=== PATIENT | female | born 1995 | race Caucasian/White ===

== ENCOUNTER 2018-06-05 10:37 | Outpatient (CLI) | payer BC, OTHER ==
--- NOTE | 2018-06-05 13:44 | ULT ---
OBSTETRICAL SONOGRAM: HISTORY: evaluation. Second trimester gestation. FINDINGS: Multiple transabdominal sonographic views of the gravid uterus show a single intrauterine gestation i n a cephalic presentation. The cervix is closed and 3.2 cm. Amniotic fluid is within normal limits. Grade 0 placenta is anterior. spine and kidneys are intact, as visualized. No gross intracr anial abnormalities. Three-vessel cord shows a normal insertion. Four-chamber heart shows motion at 142 beats per minute. Measurements are as follows: BIPARIETAL DIAMETER: 19 weeks 3 days HEAD CIRCUMFERENCE: 18 weeks 6 days ABDOMINAL CIRCUMFERENCE: 18 weeks 1 day FEMUR LENGTH: 18 weeks 2 days ESTIMATED DATE OF DELIVERY BASED ON TODAY'S SONOGRAM: 11/01/2018 HADLOCK PERCENTILE: 2% IMPRESSION: 1. Single viable intrauterine gestation. 2. Estimated gestational age based on today's sonogram is 18 weeks 5 days. Please note that this is significantly smaller than the previously estabalished age of 20 weeks 2 days. POS: [facility]
== END 2018-06-05 10:38 | disposition home or self-care (01) ==
LOC: BICULT 10:37
PROVIDERS: ATTEND Family Medicine
DX: Z34.82 Encounter for supervision of other normal pregnancy, second trimester (principal); Z3A.18 18 weeks gestation of pregnancy
CPT/HCPCS: 76805

== ENCOUNTER 2018-08-19 13:49 | Outpatient (CLI) | payer BC, OTHER ==
--- NOTE | 2018-08-19 17:32 | ULT ---
OB ULTRASOUND AND UMBILICAL ARTERY ULTRASOUND: Date: 08/19/18 COMPARISON: None. HISTORY: Preeclampsia. TECHNIQUE: Multiplanar De La Cruz scale and color Doppler images were obtained in a transabdominal ultrasound. S pectral analysis of the Doppler waveforms of the umbilical artery were performed. FINDINGS: There is a single, live intrauterine , with heart rate of 149 beats/minute. A survey w as performed, which was unremarkable. Head, intracranial structures, heart, stomach, kidneys, umbilic al cord, umbilical cord insertion, spine, face, and extremities were evaluated and were normal. Average age of fetus based off today's examination is 29 weeks/1 day. The following measurements were taken and dates based off these measurements are as follows: BPD: 7.46 cm, 29 weeks/6 days HC: 26.82 cm, 29 weeks/2 days AC: 24.74 cm, 29 weeks/0 days FL: 5.51 cm, 29 weeks/0 days YANN is 14.7 cm, which is normal. Cervix is normal in length. Placenta is anterior in location, without focal abnormality. Evaluation of the umbilical arteries shows continuous diastolic flow within the umbilical arteries. P eak systolic velocity in the umbilical artery is 103 cm/second. End-diastolic velocity in this locati on is 30.8 cm/second. The systolic/diastolic ratio is in this location is 3.37. IMPRESSION: 1. Single, live intrauterine , with estimated age of 29 weeks and 1 day. 2. Unremarkable umbilical artery ultrasound. POS: [facility]
== END 2018-08-19 13:50 | disposition home or self-care (01) ==
LOC: ULT 13:49
PROVIDERS: ATTEND Family Medicine
DX: O14.93 Unspecified pre-eclampsia, third trimester (principal); Z3A.29 29 weeks gestation of pregnancy
CPT/HCPCS: 76700; 76805

== ENCOUNTER 2018-08-26 09:47 | Inpatient (IN) | payer BC, OTHER ==
[2018-08-26 10:36] VITALS: BMI 30.7
[2018-08-26] MEDS ORDERED: Ondansetron PF 4 MG/2 ML Vial IVP PRN (10:46)
[2018-08-26] MEDS ORDERED: Promethazine HCl 25 MG/ML VIAL IM PRN (10:46)
--- NOTE | 2018-08-26 11:38 | HP ---
REASON FOR ADMISSION: A 30 weeks' gestation with elevated blood pressures at home and visual changes. HISTORY OF PRESENT ILLNESS: Ms. Rodríguez is a 23-year-old, 3, para 2, AB 0, at 30 weeks' gestation with an SHARON of 11/04/2018. She has a known history of severe preeclampsia with previous pregnancies leading to delivery at 30 and 35 weeks' gestation. She has been followed by Dr. Sandra Phan since 5 weeks of gestation. The patient's blood pressures have increased since early August. The patient received corticosteroids on 08/05/2018 and 08/06/2018. Serial blood pressures in the office reveal occasional 150s/90s, but also with 120s/70s. The patient called today and reported that she had some changes in her vision and blood pressures of 140 to 150 over 80 to 100 at home. Decision was made to bring the patient to the hospital for serial blood pressures, followup umbilical artery Dopplers, and repeat 24-hour urine. 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 Blood type A positive. Antibody negative. Pap negative. Rubella immune. VDRL nonreactive. Hepatitis B, GC, and chlamydia negative. Of note, the patient has been on baby aspirin daily since 1st trimester. 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 MEDICAL HISTORY: Denies. ALLERGIES: DENIES. MEDICATIONS: vitamins and baby aspirin. SOCIAL HISTORY: Denies tobacco, alcohol, or drug abuse. FAMILY HISTORY: Noncontributory. REVIEW OF SYSTEMS: Noncontributory. PHYSICAL EXAMINATION: GENERAL: White female, resting comfortably. VITAL SIGNS: Blood pressure 130/80, pulse 85, and respirations 18. HEENT: Within normal limits. LUNGS: Clear to auscultation bilaterally. HEART: Regular rhythm. ABDOMEN: Soft and nontender with fundal height of 29 cm. FHTs 130s to 140s. PELVIC: External genitalia are unremarkable. Vaginal exam deferred. EXTREMITIES: No clubbing, cyanosis, or edema. monitoring was carried out, which revealed a baseline of 140s. Positive accelerations. No decelerations. No contractions noted. IMPRESSION: Gestational hypertension with a history of preeclampsia. A 24-hour urine testing last week revealed mild elevation of total protein over 24 hours. The patient has benign neurologic exam without scotoma and no right upper quadrant pain. PLAN: Serial blood pressures, 24-hour urine for protein, repeat ultrasound to evaluate growth, amniotic fluid, umbilical artery Doppler. If delivery becomes indicated, we would consider if she is stable enough to allow for delay rescue course of corticosteroids. We would not start magnesium sulfate at this time; however, if delivery becomes indicated, we would initiate likely for both preeclampsia as well as neuroprotective effects. Job ID: [id number]
[2018-08-26 11:58] LABS: Hemoglobin 11.7 g/dL (12.0-16.0); Mean Corpuscular HGB CONC 33.4 g/dL (32.0-36.0); Mean Corpuscular Hemoglobin 32.1 pg (27.0-31.0); Mean Corpuscular Volume 95.9 fL (78.0-98.0); Mean Platelet Volume 8.1 fL (7.4-10.4); Platelet Count 163 thou/uL (130-400); RBC Distribution Width 12.3 % (11.5-14.5); Red Blood Cell (RBC) Count 3.65 mill/uL (4.20-5.40); White Blood Cell (WBC) Count 8.8 thou/uL (4.8-10.8)
[2018-08-26 12:20] LABS: ALT (SGPT) 14 U/L (8-55); AST (SGOT) 15 U/L (5-34); Albumin 3.3 g/dL (3.5-5.0); Alkaline Phosphatase 101 U/L (40-150); Anion Gap 10 mmol/L (10-20); BUN (Urea Nitrogen) 11 mg/dL (7.0-18.7); Bilirubin, Total 0.3 mg/dL (0.2-1.2); Calc. Creatinine Clearance 169 mL/min (70-130); Calcium 8.7 mg/dL (7.8-10.44); Carbon Dioxide 23 mmol/L (22-29); Chloride 107 mmol/L (98-107); Estimated GFR-MDRD Greater than 90; Globulin 2.9 g/dL (2.4-3.5); Glucose 76 mg/dL (70-105); Potassium 4.1 mmol/L (3.5-5.1); Protein, Total 6.2 g/dL (6.0-8.3); Sodium 136 mmol/L (136-145)
[2018-08-26 12:38] LABS: Syphilis Antibody Nonreactive (Nonreactive); Syphilis Antibody Index 0.04 S/CO (<1.00 Non-Reactive)
[2018-08-26 12:39] LABS: HBSAg Index 0.18 S/CO (0-0.99); HIV (1/2) Antibody/Antigen Non-Reactive (NonReactive); HIV 1/2 INDEX 0.06 S/CO (<1.00); Hep B Surf Ag Non-Reactive S/CO (NonReactive)
--- NOTE | 2018-08-26 14:27 | ULT ---
ULTRASOUND OB ABDOMEN COMPLETE ULTRASOUND ABDOMEN AND PELVIS DUPLEX ARTERIAL VENOUS FLOW: COMPARISON: OB ultrasound 08/19/2018. HISTORY: Preeclampsia. FINDINGS: Real-time, funes scale, color Doppler, and spectral analysis of the gravid uterus and umbilical artery was performed. Single viable intrauterine with average ultrasound age of 31 weeks 3 days with estimated da te of delivery 10/25/2018. Estimated weight is 3 pounds 10 ounces, 65th percentile. BIOMETRY: Biparietal diameter 8.06 cm, 32 weeks 3 days Head circumference 29.4 cm, 32 weeks 3 days Abdominal circumference 26.17 cm, 30 weeks 2 days Femur length 5.86 cm, 30 weeks 4 days Amniotic fluid index is 12.4 cm. heart rate documented at 155 b.p.m. The position is ve rtex and the placenta is anterior. Amniotic fluid is adequate. Limited evaluation of the bladder, k idneys, 4-chamber heart, stomach, and cord insertion are all normal. UMBILICAL ARTERY: DOPPLERS: Placental insertion peak systolic velocity is 33.2 cm. End-diastolic velocity 10 cm/s. Systolic to diastolic ratio 3.32. MID CORD: Peak systolic velocity 30.1 cm/s and diastolic velocity of 7.8 cm/s. Systolic to diastolic ratio of 3.86 cm. INSERTION: Peak systolic velocity of 57.6 cm/s. Diastolic velocity 14.9 cm/s. Systolic to diastolic ratio is 3 .87. No flow reversal. There is flow throughout diastole. IMPRESSION: Single viable intrauterine with adequate diastolic flow in the umbilical artery. POS: [facility]
[2018-08-26] MEDS ORDERED: Calcium Carbonate 500 MG ChewTAB PO PRN (15:40)
[2018-08-26] MEDS: Acetaminophen 325 MG TAB PO PRN ×2 (16:55→21:58)
[2018-08-27] MEDS: Acetaminophen 325 MG TAB PO PRN ×2 (01:56→07:30)
[2018-08-27 08:23] VITALS: BP 138/92; TEMP 98
[2018-08-27] MEDS ORDERED: Aspirin 81 mg Enteric Coated Tablet PO SCH (09:00)
--- NOTE | 2018-08-27 09:45 | DIS ---
DATE OF ADMISSION: 08/26/2018 DATE OF DISCHARGE: 08/27/2018 DISCHARGE DIAGNOSES: 1. A 30-week 1 day intrauterine . 2. Gestational hypertension. 3. History of severe -induced hypertension x2. 4. Previous section x2. 5. Headache with vision change. HOSPITAL COURSE: Ms. Patel is a 30-week gestation G3, P0-2-0-2 at 30 weeks gestation who was evaluated in my office on the day of admission. She has been followed twice weekly due to elevated blood pressures as well as a recent note of elevated umbilical artery Doppler pressures with previous severe PIH. The patient on evaluation noted her blood pressures had increased to the 150s/100s at home on rest and had complaints of a mild headache as well as some vision change. She was sent to labor and delivery for initial monitoring. Blood pressures did decrease to 130/80, continued with the mild headache. Exam otherwise normal. Initial evaluation with laboratory studies, which revealed white count of 8.8, hemoglobin 11.7, platelets normal at 163. Comprehensive metabolic panel within normal limits with normal liver function tests. AST 15, ALT 14, alk phos 101 and creatinine 0.61. A 24-hour urine was initiated for total protein and a ultrasound was obtained, which revealed baby to be growing well at the 65th percentile with weight of 3 pounds of 10 ounces at 31 weeks and 3 days as well as normal YANN of 12.4. Umbilical artery Dopplers revealed placental insertion S-D ratio 3.32, mid cord 3.86 and insertion 3.87. Following morning blood pressures remained in the normal range 125-142 systolic/68-82 diastolic. Exam was normal. The patient continued to the have very mild headache in spite of normal blood pressures. Plan to discharge home after completion of the 24-hour urine. We will continue biweekly testing as discussed with the labor Dr. Jose Cortez. She is to followup with me in 2 days in the office for evaluation and NST as well as the following week for evaluation and OB ultrasound with biophysical profile. Job ID: [id number]
[2018-08-27 10:40] LABS: Urine Total Volume 1925 mL (600-1600)
[2018-08-27 11:00] LABS: Protein - 24 Hr 443 mg/24 hr (Less than 300); Protein, Urine 23 mg/dL (1-14)
== END 2018-08-27 11:55 | disposition home or self-care (01) | DRG 833 ==
LOC: L&D 09:47 → 3SW 17:03
PROVIDERS: ADMIT Family Medicine; ATTEND Family Medicine
DX: O13.3 Gestational [pregnancy-induced] hypertension without significant proteinuria, third trimester (principal); Z3A.30 30 weeks gestation of pregnancy; Z98.890 Other specified postprocedural states
CPT/HCPCS: 36415; 59025; 76700; 76805; 80053; 84156; 85027; 86780; 86850; 86900; 86901; 87340; 87389

== ENCOUNTER 2018-09-02 09:36 | Outpatient (CLI) | payer BC, OTHER ==
--- NOTE | 2018-09-02 12:01 | ULT ---
OB ULTRASOUND: 09/02/2018 HISTORY: Follow-up evaluation. Hypertension. COMPARISON: 08/26/2018 FINDINGS: Again, there is a single intrauterine gestation, in a cephalic presentation. Cardiac Doppler demonst rates heart tones with a heart rate of 153 beats per minute. The placenta is located ant eriorly, without evidence of placenta previa. There is a normal amount of air-fluid level, with an a mniotic fluid volume of 12.49 cm. The cervix is mostly obscured due to shadowing from the head, which limits adequate evaluation for accurate measurement of cervical length. MEASUREMENTS: BIPARIETAL DIAMETER: 8.34 cm (33 weeks 4 days). HEAD CIRCUMFERENCE: 29.22 cm (32 weeks 2 days). ABDOMINAL CIRCUMFERENCE: 27.49 cm (31 weeks 4 days). FEMUR LENGTH: 5.48 cm (29 weeks). The estimated gestational age by ultrasound is 31 weeks 5 days, with an SHARON of 10/30/2018. Gestation al age by last menstrual period is 31 weeks. The estimated weight by ultrasound is 1675 g (3 lbs 11 oz). This represents the 37th percentil e for weight. A biophysical profile was performed and, reportedly, a score of 2 was obtained, each, for breat harris, tone, movement, and amniotic fluid volume. UMBILICAL ARTERY DOPPLER EVALUATION: PLACENTAL INSERTION: The peak systolic velocity is 54.5 cm per second. The end-diastolic velocity i s 21.4 cm per second. The systolic to diastolic ratio is 2.5, and the resistive index is 0.61. MID UMBILICAL CORD: The peak systolic velocity is 81.8 cm per second. The end-diastolic velocity is 20.5 cm per second. The systolic to diastolic ratio is 4, and the resistive index is 0.75. UMBILICAL CORD AT THE INSERTION: The peak systolic velocity is 97.4 cm per second. The end-di astolic velocity is 20.5 cm per second. The resistive index is 0.79, with a systolic to diastolic r atio of 4.8. This examination was not performed for evaluation of the anatomic structures, but no definite f etal anomalies are seen. IMPRESSION: 1. Single intrauterine gestation, in cephalic presentation, with heart tones documented. 2. Estimated weight by ultrasound is 1675 g (3 pounds 11 oz), which represents the 37th percen tile for weight. 3. A total biophysical profile score of 8/8 is obtained. 4. Umbilical artery Doppler evaluation is as described above. POS: [facility]
--- NOTE | 2018-09-02 12:05 | ULT ---
BIOPHYSICAL PROFILE SCORE: 09/02/2018 FINDINGS: Biophysical profile score is reported on OB ultrasound. POS: [facility]
== END 2018-09-02 09:37 | disposition home or self-care (01) ==
LOC: BICULT 09:36
PROVIDERS: ATTEND Family Medicine
DX: O13.3 Gestational [pregnancy-induced] hypertension without significant proteinuria, third trimester (principal)
CPT/HCPCS: 36415; 76700; 76816; 76819; 80053; 84156; 85025

== ENCOUNTER 2018-09-09 07:49 | Outpatient (CLI) | payer BC, OTHER ==
--- NOTE | 2018-09-09 09:49 | ULT ---
BIOPHYSICAL PROFILE: HISTORY: Gestational hypertension followup. FINDINGS: biophysical profile score equals 8/8. IMPRESSION: Normal biophysical profile score of 8/8. POS: [facility]
--- NOTE | 2018-09-09 10:22 | ULT ---
COMPLETE OB ULTRASOUND INCLUDING VASCULAR AND DUPLEX EXAMINATION OF THE UMBILICAL CORD: FINDINGS: A single viable intrauterine fetus was noted in cephalic presentation. Cervical length of 3.3 cm. P lacenta is anterior and fundal. heart rate varies between 134 and 143 b.p.m. Amniotic fluid i s within normal limits, YANN 9.7 cm. Visualized brain, 4-chamber heart, stomach, kidneys, cord insert, bladder, lips and nose, and 3 -vessel cord were demonstrated. Biometry: BPD 8.3 cm-33 weeks 3 days Head circumference 29.3 cm-32 weeks 3 days Abdominal circumference 27.9 cm-32 weeks 0 days Femur length 6.2 cm-32 weeks 0 days UMBILICAL ARTERY VASCULAR DUPLEX WITH COLOR AND SPECTRAL DOPPLER IMAGING: Systolic/diastolic ratio of the umbilical artery at the level of the cord equals 4.2 cm with re sistive index of 0.76. At the mid core level systolic diastolic ratio equals 4.85 with a resistive i ndex of 0.79. At the level of the placenta cord insertion systolic diastolic ratio equals 2.53 with a resistive index of 0.607. IMPRESSION: Elevated systolic to diastolic ratios at the level of the cord insert and mid cord level, but n o evidence for flow reversal. Single viable intrauterine fetus at 32 weeks 4 days, estimated date of delivery of 10/31/2018. Estimated weight 1902 gm. POS: [facility]
== END 2018-09-09 07:50 | disposition home or self-care (01) ==
LOC: BICULT 07:49
PROVIDERS: ATTEND Family Medicine
DX: O13.3 Gestational [pregnancy-induced] hypertension without significant proteinuria, third trimester (principal); Z3A.32 32 weeks gestation of pregnancy
CPT/HCPCS: 36415; 76700; 76805; 76819; 80053; 84156; 85025

== ENCOUNTER 2018-09-10 14:31 | Inpatient (IN) | payer BC, OTHER ==
[2018-09-10] MEDS ORDERED: hydrALAZINE 20 MG/ML VIAL ONE (15:06)
[2018-09-10] MEDS ORDERED: Magnesium Sulfate 20 gm/500 ml 20 GM/500 ML BAG ONE (15:07)
[2018-09-10] MEDS ORDERED: Ondansetron PF 4 MG/2 ML Vial ONE (15:15)
[2018-09-10] MEDS ORDERED: Butorphanol Tartrate 1 MG/ML VIAL SLOW IVP PRN (15:16)
[2018-09-10] MEDS ORDERED: Ondansetron PF 4 MG/2 ML Vial IVP PRN (15:16)
[2018-09-10] MEDS ORDERED: Calcium Gluc 4.6 MEQ/10 ML (100 MG/ML) SLOW IVP PRN (15:16)
[2018-09-10] MEDS ORDERED: Betamet Acet/Betamet Na Ph 30 MG/5 ML VIAL ONE (15:18)
--- NOTE | 2018-09-10 15:23 | PDOC.LDHP ---
Labor and Delivery H&P Chief complaint: other HPI: 23 yo WF presents c/o HALE and malaise. Denies visual change or RUQ pain. Followed by Dr. Jazzy hPan with incresing PIH sxs. over last several days. Current gestational age (weeks): 32 Due date: 11/04/18 Dating criteria: last menstrual period Grav: 3 Para: 2 OB History Details: As above, h/o 3 prev. C/S. Current complications: other (as above, h/o increasing UP on recent 24 hr urine collections) Abnormal US findings: No Past Medical History: migraine HALE Current medications: pre-patrica vitamins, other (ASA 81) Previous surgical history: low tranverse CS (x2), other (bunion, T&A) Allergies/Adverse Reactions: Allergies Allergy/AdvReac Type Severity Reaction Status Date / Time No Known Allergies Allergy Verified 08/26/18 10:19 Social history: none - Physical Exam Abnormal vital signs: initial BP= 177/113 General: NAD Heart: RRR Lungs: nonlabored breathing Abdomen: gravid Extremeties: trace edema FHT: category 1 [place] contractions every: no UCs seen - OB Labs Blood type: A RH: positive Antibody Screen: negative HIV: negative RPR: negative HEPSAg: negative 1 hour GCT: negative Rubella: immune - Assessment L&D Assessment: (32 week IUP, PIH, 2 prev. C/S for PIH) - Plan Plan: admit to L&D, informed consent obtained, magnesium for seizure prophylaxis (labs ordered, Celestone given. Dr. Jazzy Phan notified.)
[2018-09-10] MEDS ORDERED: Betamet Acet/Betamet Na Ph 30 MG/5 ML VIAL IM SCH (15:30)
[2018-09-10] MEDS ORDERED: Labetalol HCl 100 MG/20 ML VIAL SLOW IVP SCH (15:30)
[2018-09-10] MEDS ORDERED: Magnesium Sulfate 20 GM/WATER 500 ML BAG IVPB SCH (15:30)
[2018-09-10 15:44] LABS: Hemoglobin 11.3 g/dL (12.0-16.0); Mean Corpuscular HGB CONC 30.7 g/dL (32.0-36.0); Mean Corpuscular Hemoglobin 29.1 pg (27.0-31.0); Mean Corpuscular Volume 94.9 fL (78.0-98.0); Mean Platelet Volume 8.5 fL (7.4-10.4); Platelet Count 191 thou/uL (130-400); RBC Distribution Width 12.3 % (11.5-14.5); Red Blood Cell (RBC) Count 3.87 mill/uL (4.20-5.40); White Blood Cell (WBC) Count 12.7 thou/uL (4.8-10.8)
[2018-09-10 15:49] LABS: Bilirubin Small (Negative); Blood, Urine Negative (Negative); Clarity CLEAR (Clear); Glucose, Urine (Dipstick) Negative (Negative); Leukocyte Negative (Negative); Nitrite Negative (Negative); Protein, Urine (Dipstick) 300 mg/dL (Neg-Trace); Specific Gravity, Urine 1.038 (1.002-1.036); Urobilinogen 0.2 mg/dL (0.2-1.0); pH, Urine 5.5 (5.0-9.0)
[2018-09-10 15:55] LABS: Bacteria/HPF None Seen HPF (None Seen); RBC/HPF 0-3 HPF (0-3); WBC/HPF 0-3 HPF (0-3)
[2018-09-10 15:56] LABS: Pathc Cast-AUWi Flag 6.39 (0-2.49)
[2018-09-10 16:09] LABS: Hyaline Casts/LPF 0-3 HYALINE CAST LPF (0-3 Hyaline); Manual Microscopic Reviewed? No Path Casts Seen; Renal Epithelial None Seen HPF (0-3); Transitional Epithelial NONE SEEN HPF (0-3)
[2018-09-10 16:14] LABS: HBSAg Index 0.28 S/CO (0-0.99); Hep B Surf Ag Non-Reactive S/CO (NonReactive)
[2018-09-10 16:22] LABS: Syphilis Antibody Nonreactive (Nonreactive); Syphilis Antibody Index 0.03 S/CO (<1.00 Non-Reactive)
[2018-09-10 16:28] VITALS: BMI 33.4
[2018-09-10 17:17] LABS: ALT (SGPT) 22 U/L (8-55); AST (SGOT) 22 U/L (5-34); Albumin 3.3 g/dL (3.5-5.0); Alkaline Phosphatase 117 U/L (40-150); Anion Gap 12 mmol/L (10-20); BUN (Urea Nitrogen) 14 mg/dL (7.0-18.7); Bilirubin, Total Less than 0.2 mg/dL (0.2-1.2); Calc. Creatinine Clearance 166 mL/min (70-130); Calcium 9.2 mg/dL (7.8-10.44); Carbon Dioxide 21 mmol/L (22-29); Chloride 107 mmol/L (98-107); Estimated GFR-MDRD Greater than 90; Globulin 2.8 g/dL (2.4-3.5); Glucose 96 mg/dL (70-105); Potassium 4.3 mmol/L (3.5-5.1); Protein, Total 6.1 g/dL (6.0-8.3); Sodium 136 mmol/L (136-145)
[2018-09-10] MEDS: Promethazine HCl 25 MG/ML VIAL IM PRN (21:24)
[2018-09-10] MEDS: Meperidine HCl/PF 25 MG/ML VIAL IM/IV PRN (21:24)
[2018-09-11] MEDS: Magnesium Sulfate 20 gm/500 ml 20 GM/500 ML BAG IVPB SCH ×3 (00:06→23:08)
[2018-09-11] MEDS: Lactated Ringer's 1,000 ML IV SCH (02:57)
[2018-09-11] MEDS: Promethazine HCl 25 MG/ML VIAL IM PRN (02:58)
[2018-09-11] MEDS: Meperidine HCl/PF 25 MG/ML VIAL IM/IV PRN (02:58)
[2018-09-11] MEDS ORDERED: Bicitra 30 ML UDCUP PO SCH (05:52)
[2018-09-11] MEDS ORDERED: CEFAZOLIN 2 GM in Premix Bag 1 BAG IVPB SCH (05:52)
[2018-09-11] MEDS ORDERED: MORPHINE 5 MG/10 ML PF VIAL ONE (06:19)
[2018-09-11] MEDS ORDERED: Ondansetron PF 4 MG/2 ML Vial ONE (06:20)
[2018-09-11] MEDS ORDERED: Dexamethasone 4 mg/ml Vial ONE (06:20)
[2018-09-11] MEDS ORDERED: PHENYLEPHRINE-NS 100 MCG/ML 10 ML SYRINGE ONE (06:20)
[2018-09-11] MEDS ORDERED: Oxytocin 10 UNITS/ML VIAL ONE ×2 (06:20→06:21)
[2018-09-11 06:22] LABS: Hemoglobin 12.5 g/dL (12.0-16.0); Mean Corpuscular HGB CONC 31.7 g/dL (32.0-36.0); Mean Corpuscular Hemoglobin 30.3 pg (27.0-31.0); Mean Corpuscular Volume 95.7 fL (78.0-98.0); Mean Platelet Volume 8.4 fL (7.4-10.4); Platelet Count 191 thou/uL (130-400); RBC Distribution Width 12.1 % (11.5-14.5); Red Blood Cell (RBC) Count 4.13 mill/uL (4.20-5.40); White Blood Cell (WBC) Count 16.6 thou/uL (4.8-10.8)
[2018-09-11] MEDS ORDERED: Azithromycin 500 MG in Sodium Chloride 0.9% 250 ML 250 ML IVPB SCH (06:30)
[2018-09-11] MEDS ORDERED: diphenhydrAMINE 25 MG CAP PO PRN ×2 (06:55→16:44)
[2018-09-11] MEDS ORDERED: Eucerin (Mineral Oil/Petrolatum,White) 30 gm Jar TOP PRN (06:55)
[2018-09-11] MEDS ORDERED: diphenhydrAMINE 50 MG/ML VIAL IM PRN (06:55)
[2018-09-11] MEDS ORDERED: Naloxone HCl 0.4 mg/ml Vial IV PRN ×2 (06:55)
[2018-09-11] MEDS ORDERED: diphenhydrAMINE 50 MG/ML VIAL IVP PRN ×2 (06:55)
[2018-09-11] MEDS ORDERED: Zolpidem Tartrate 5 MG TAB PO PRN ×2 (06:55→19:00)
[2018-09-11] MEDS ORDERED: fentaNYL Citrate/PF 2,000 MCG in Sodium Chloride 0.9% 60 ML IV PRN (06:55)
[2018-09-11] MEDS ORDERED: Naloxone HCl 0.4 mg/ml Vial IVP PRN ×2 (06:55)
[2018-09-11] MEDS ORDERED: Promethazine HCl 25 MG/ML VIAL IM PRN ×2 (06:55)
[2018-09-11] MEDS ORDERED: Ondansetron PF 4 MG/2 ML Vial IVP PRN ×3 (06:55→16:44)
[2018-09-11] MEDS ORDERED: Promethazine HCl 25 MG SUPP PR PRN (06:55)
[2018-09-11] MEDS ORDERED: Communication Order-Pharmacy FS SCH ×2 (07:00)
[2018-09-11 07:39] LABS: Actual Bicarbonate (HCO3a) 24.2 mEq/L (22-28); Actual Bicarbonate (HCO3v) 24 mEq/L (22-28)
[2018-09-11 07:40] LABS: pH (Cord, venous) 7.24 (7.32-7.43)
[2018-09-11 07:41] LABS: Base Excess -4.4 mEq/L (-2.0 to +3.0)
[2018-09-11] MEDS ORDERED: Ketorolac Tromethamine 30 MG/ML VIAL ONE ×2 (09:10→14:59)
[2018-09-11] MEDS ORDERED: NS / Oxytocin 40 units/1000ml 1,000 ML ONE (09:11)
--- NOTE | 2018-09-11 10:25 | OP ---
DATE OF PROCEDURE: 09/11/2018 PREOPERATIVE DIAGNOSES: A 32-week 2 day intrauterine with previous section x2 and preeclampsia with severe features. POSTOPERATIVE DIAGNOSES: A 32-week 2 day intrauterine with previous section x2 and preeclampsia with severe features, status post delivery. OPERATION PERFORMED: Repeat low-transverse section. DIRECTOR OF PLANT OPERATIONS: Aguila Hirsch M.D. ANESTHETIC: Spinal. COMPLICATIONS: None. The patient had been admitted the day prior with elevated blood pressures and proteinuria. She has been placed on magnesium sulfate IV, noted over the subsequent 12 hours, decreased urine output and increasing severity of headache. Decision was made to proceed with delivery. Risks, benefits and alternatives had been explained to the patient. The patient was taken to the operating room. After spinal anesthesia, the patient was placed in supine position, a wedge was placed under her right flank. Abdomen was prepped and draped in the usual sterile technique. A Echevarria catheter had previously been placed. A Pfannenstiel incision was made in the infra aspect of the abdomen. The old scar was removed without difficulty. Subcutaneous tissue opened with sharp dissection. Fascia opened with sharp dissection. Peritoneum opened with sharp and blunt dissection. Noted that the abdomen was still with a gravid uterus. A bladder blade was placed and the bladder flap was incised inferiorly. A low-transverse incision was made on the uterus. Membranes were ruptured. Clear fluid was encountered and a viable female infant was delivered from vertex presentation without difficulty. breathed and cried spontaneously. The cord was clamped and cut and the was handed to the care of the neonatology team. A section of the cord was excised for cord gases and additional cord blood was obtained. The placenta was delivered manually, appeared intact. A wet lap was placed over the uterus, taken external to the abdominal cavity and a second lap was used to clean the uterus. Hysterotomy edges were grasped with ring forceps and the hysterotomy was then closed in continuous fashion 0 Monocryl. Hemostasis was adequate. There was no bleeding from the bladder flap. Uterus was replaced into the abdominal cavity. Gutters were checked, few small clots were removed and the peritoneum was then closed in continuous fashion using 2-0 chromic sutures. The sponge and instrument counts were correct. Fascia was then closed using 0-Vicryl and 3 interrupting sutures of 2-0 chromic were placed for fascia. The skin was then closed using ivette. Sponge and instruments again were correct. The patient tolerated the procedure well, did go to the labor ICU to continue magnesium sulfate for preeclampsia. ESTIMATED BLOOD LOSS: 800 mL. Note that the baby is a viable female, weight 3 pounds 12 ounces, Apgars 5 at one minute and 9 at five minutes. Note there were mild adhesions with internal scarring. The patient without any other complications. Job ID: [id number]
[2018-09-11] MEDS ORDERED: Betamet Acet/Betamet Na Ph 30 MG/5 ML VIAL IM SCH (15:30)
[2018-09-11] MEDS ORDERED: Acetaminophen 325 MG TAB PO PRN (16:44)
[2018-09-11] MEDS ORDERED: Lanolin Ointment 7 GM TUBE TOP PRN (16:44)
[2018-09-11] MEDS ORDERED: Simethicone Chewable 80 MG TAB PO PRN (16:44)
[2018-09-11] MEDS ORDERED: Bisacodyl 10 MG SUPP PR PRN (16:44)
[2018-09-11] MEDS ORDERED: Prenatal Vitamin 1 TAB PO SCH (16:44)
[2018-09-11] MEDS ORDERED: Acetaminophen/Codeine 30-300mg Tablet PO PRN (19:00)
[2018-09-11] MEDS ORDERED: HYDROcodone/Acetaminophen 5/325 mg Tablet PO PRN (19:00)
[2018-09-11] MEDS: Docusate Calcium (SURFAK) 240 MG CAP PO SCH (20:59)
[2018-09-11] MEDS: Ketorolac Tromethamine 30 MG/ML VIAL IVP SCH (20:59)
[2018-09-12] MEDS ORDERED: diphenhydrAMINE 25 MG CAP PO PRN (08:59)
[2018-09-12] MEDS ORDERED: Ondansetron PF 4 MG/2 ML Vial IVP PRN (08:59)
[2018-09-12] MEDS ORDERED: Lanolin Ointment 7 GM TUBE TOP PRN (08:59)
[2018-09-12] MEDS ORDERED: Bisacodyl 10 MG SUPP PR PRN (08:59)
[2018-09-12] MEDS ORDERED: HYDROcodone/Acetaminophen 5/325 mg Tablet PO PRN ×2 (08:59→18:45)
[2018-09-12] MEDS ORDERED: Acetaminophen 325 MG TAB PO PRN (08:59)
[2018-09-12] MEDS ORDERED: Prenatal Vitamin 1 TAB PO SCH (09:00)
[2018-09-12] MEDS: Ferrous Sulfate 325 MG TAB PO SCH ×2 (11:02→22:03)
[2018-09-12] MEDS: Labetalol 100 MG TAB PO SCH ×2 (11:03→21:25)
[2018-09-12] MEDS: Prenatal Vitamin 1 TAB PO SCH (11:03)
[2018-09-12] MEDS: Acetaminophen/Codeine 30-300mg Tablet PO PRN ×2 (11:03→16:19)
[2018-09-12] MEDS: Docusate Calcium (SURFAK) 240 MG CAP PO SCH ×3 (11:03→21:26)
[2018-09-12] MEDS: Simethicone Chewable 80 MG TAB PO PRN ×2 (16:22→21:52)
[2018-09-12] MEDS: Ketorolac Tromethamine 30 MG/ML VIAL IVP SCH (19:50)
[2018-09-12] MEDS: Lactated Ringer's 1,000 ML IV SCH (19:52)
[2018-09-13] MEDS: Docusate Calcium (SURFAK) 240 MG CAP PO SCH ×2 (08:02→21:39)
[2018-09-13] MEDS: Prenatal Vitamin 1 TAB PO SCH (08:03)
[2018-09-13] MEDS: Acetaminophen/Codeine 30-300mg Tablet PO PRN ×4 (08:03→23:17)
[2018-09-13] MEDS: Labetalol 100 MG TAB PO SCH ×2 (08:03→21:39)
[2018-09-13] MEDS: Ferrous Sulfate 325 MG TAB PO SCH ×2 (08:12→16:30)
[2018-09-13] MEDS: Simethicone Chewable 80 MG TAB PO PRN ×2 (17:06→21:40)
[2018-09-14] MEDS: Acetaminophen/Codeine 30-300mg Tablet PO PRN (08:02)
[2018-09-14] MEDS: Labetalol 100 MG TAB PO SCH (09:23)
[2018-09-14] MEDS: Ferrous Sulfate 325 MG TAB PO SCH (09:24)
[2018-09-14] MEDS: Docusate Calcium (SURFAK) 240 MG CAP PO SCH (09:24)
[2018-09-14] MEDS: Simethicone Chewable 80 MG TAB PO PRN (09:24)
[2018-09-14] MEDS: Prenatal Vitamin 1 TAB PO SCH (09:24)
[2018-09-14 09:26] VITALS: BP 139/93
[2018-09-14 12:26] VITALS: TEMP 98.4
== END 2018-09-14 16:57 | disposition home or self-care (01) | DRG 788 ==
LOC: L&D/OP 14:31 → L&D 22:30 → 3SW 09-12 09:02
PROVIDERS: ADMIT Family Medicine; ATTEND Family Medicine
PROC: 10D00Z1 Extraction of Products of Conception, Low, Open Approach (ICD-10-PCS; principal; 2018-09-10)
DX: O14.14 Severe pre-eclampsia complicating childbirth (principal); O34.211 Maternal care for low transverse scar from previous cesarean delivery; Z3A.32 32 weeks gestation of pregnancy; Z37.0 Single live birth
CPT/HCPCS: 36415; 51702; 76700; 76805; 76819; 80053; 81001; 82805; 83735; 84156; 85025; 85027; 86780; 86850; 86900; 86901; 87340; 88307; 99285; J0360; J0595; J0690; J0702; J1100; J1885; J2175; J2270; J2405; J2550; J2590; J3475